=== PATIENT | male | born 1960 | race Caucasian/White ===

== ENCOUNTER 2016-10-20 06:58 | Day surgery (SDC) | payer BC, MEDICARE ==
--- NOTE | ~2016-10-20 | EGD ---
EGD REPORT [facility] [address] [address] NAME: ROHIT MALONE : [birth year] STATUS : REG [facility]#: [id number] AGE: 56 ADM/REG DATE : 10/20/16 MR#: [id number] REPORT SERV DATE: 10/20/16 DICTATED BY: MARY PEARL III DATE: 10/20/16 REPORT STATUS : Draft TRANSCRIBED BY: [facility] DATE: 10/20/16 Endoscopy Center Patient Name: Rohit Malone Date of : 1960 Attending MD: MARY PEARL III, MD Procedure Date No Time: 10/20/2016 Procedure: Colonoscopy Indications: High risk colon cancer surveillance: Personal history of colonic polyps Referring MD: LITA MARCUM Medicines: Propofol per Anesthesia Complications: No immediate complications. Procedure: Pre-Anesthesia Assessment: - ASA Grade Assessment: III - A patient with severe systemic disease. After I obtained informed consent, the scope was passed under direct vision. Throughout the procedure, the patient's blood pressure, pulse, and oxygen saturations were monitored continuously. The PCF [id number] was introduced through the anus and advanced to the cecum, identified by appendiceal orifice and ileocecal valve. The colonoscopy was performed with ease. The patient tolerated the procedure well. The quality of the bowel preparation was fair. Findings: A few small-mouthed diverticula were found in the sigmoid colon. External and internal hemorrhoids were found during retroflexion. A sessile polyp was found in the transverse colon. The polyp was 7 mm in size. The polyp was removed with a cold snare. Polyp resection was incomplete, and the resected tissue was not retrieved. Two sessile polyps were found in the ascending colon. The polyps were 4 to 5 mm in size. These polyps were removed with a cold biopsy forceps. Resection and retrieval were complete. Impression: - Diverticulosis in the sigmoid colon. - External and internal hemorrhoids. - One 7 mm polyp in the transverse colon. Incomplete resection. Resected tissue not retrieved. - Two 4 to 5 mm polyps in the ascending colon. Resected and retrieved. Recommendation: - Patient has a contact number available for emergencies. The signs and symptoms of potential delayed complications were discussed with the patient. Return to EGD REPORT [address] [address] NAME: ROHIT MALONE : [birth year] STATUS : REG [facility]#: [id number] AGE: 56 ADM/REG DATE : 10/20/16 MR#: [id number] REPORT SERV DATE: 10/20/16 DICTATED BY: MARY PEARL III DATE: 10/20/16 REPORT STATUS : Draft TRANSCRIBED BY: [email or web address] DATE: 10/20/16 normal activities tomorrow. Written discharge instructions were provided to the patient. - Discharge patient to home. - High fiber diet indefinitely. - Continue present medications. - Await pathology results. Procedure Code(s): --- Professional --- 16425, Colonoscopy, flexible, proximal to splenic flexure; with removal of tumor(s), polyp(s), or other lesion(s) by snare technique 75348, 59, Colonoscopy, flexible, proximal to splenic flexure; with biopsy, single or multiple Diagnosis Code(s): --- Professional --- K64.8, Other hemorrhoids K57.30, Diverticulosis of large intestine without perforation or abscess without bleeding D12.2, Benign neoplasm of ascending colon D12.3, Benign neoplasm of transverse colon Z86.010, Personal history of colonic polyps CPT copyright 2013 [employer]. All rights reserved. The codes documented in this report are preliminary and upon manager agricultural review may be revised to meet current compliance requirements. MARY PEARL III, MD 10/20/2016 9:09 AM This report has been signed electronically. Number of Addenda: 0 Note Initiated On: 10/20/2016 8:31 AM Scope Withdrawal Time 0 hours 13 minutes 48 seconds [address] [id number]
--- NOTE | ~2016-10-20 | EGD ---
EGD REPORT [facility] [address] [address] NAME: ROHIT MALONE : [birth year] STATUS : REG [facility]#: [id number] AGE: 56 ADM/REG DATE : 10/20/16 MR#: [id number] REPORT SERV DATE: 10/20/16 DICTATED BY: MARY PEARL III DATE: 10/20/16 REPORT STATUS : Draft TRANSCRIBED BY: [facility] DATE: 10/20/16 Endoscopy Center Patient Name: Rohit Malone Date of : 1960 Attending MD: MARY PEARL III, MD Procedure Date No Time: 10/20/2016 Procedure: Upper GI endoscopy Indications: Surveillance for malignancy due to personal history of Saucedo's esophagus, Heartburn Referring MD: LITA MARCUM Medicines: Propofol per Anesthesia Complications: No immediate complications. Procedure: Pre-Anesthesia Assessment: - ASA Grade Assessment: III - A patient with severe systemic disease. After obtaining informed consent, the endoscope was passed under direct vision. Throughout the procedure, the patient's blood pressure, pulse, and oxygen saturations were monitored continuously. The GIF H190 [id number] was introduced through the mouth, and advanced to the efferent jejunal loop. The upper GI endoscopy was accomplished with ease. The patient tolerated the procedure well. Findings: Localized mild erythema was found at the gastroesophageal junction. Biopsies were taken with a cold forceps for histology. Evidence of a gastric bypass was found. A gastric pouch with a normal size was found. The staple line appeared intact. The gastrojejunal anastomosis was characterized by healthy appearing mucosa. This was traversed. The [id number] limb was characterized by healthy appearing mucosa. The entire examined stomach was normal. The examined jejunum was normal. Non-severe esophagitis with no bleeding was found in the upper third of the esophagus. Impression: - Erythema at the gastroesophageal junction. Biopsied. - Gastric bypass with a normal-sized pouch intact staple line. - Normal stomach. - Normal examined jejunum. Recommendation: - Patient has a contact number available for emergencies. The signs and symptoms of potential delayed EGD REPORT [address] [address] NAME: ROHIT MALONE : [birth year] STATUS : REG [facility] [place] PAT#: [id number] AGE: 56 ADM/REG DATE : 10/20/16 MR#: [id number] REPORT SERV DATE: 10/20/16 DICTATED BY: MARY PEARL III DATE: 10/20/16 REPORT STATUS : Draft TRANSCRIBED BY: [email or web address] DATE: 10/20/16 complications were discussed with the patient. Return to normal activities tomorrow. Written discharge instructions were provided to the patient. - Discharge patient to home. - Follow an antireflux regimen. - Continue present medications. - Await pathology results. Procedure Code(s): --- Professional --- 36878, Esophagogastroduodenoscopy, flexible, transoral; with biopsy, single or multiple Diagnosis Code(s): --- Professional --- K22.9, Disease of esophagus, unspecified Z98.84, Bariatric surgery status K22.70, Saucedo's esophagus without dysplasia R12, Heartburn CPT copyright 2013 [employer]. All rights reserved. The codes documented in this report are preliminary and upon braille coder review may be revised to meet current compliance requirements. MARY PEARL III, MD 10/20/2016 8:44 AM This report has been signed electronically. Number of Addenda: 0 Note Initiated On: 10/20/2016 8:32 AM Scope Withdrawal Time 0 hours 0 minutes 0 seconds
[~2016-10-20 06:58] MED LIST: ABILIFY20 MG PO; ABILIFY30 MG PO; ACCO20 PO; ADVAIR250 INH; ALBUTEROL5 INH; ALLEGRA-D12 HOUR PO; ALLEGRA-D24 HOUR PO; ALLEGRA180 PO; AMB10 PO; BIST PO; CIALIS5 MG PO; CLINDAMAX1 % TOP; CORDARONE PO; COREG6 PO; COUMADIN4 MG PO; CULTURELLE PO; CYANO1000T PO; CYMBALTA30 PO; CYMBALTA60 PO; EXFORGE1 TAB PO; EZFE 200200 MG PO; FERROUS SULF325 M1 PO; FLINTSTONE3 PO; FLOMAX4 PO; FLONASE NAS; GLUCCHONDR PO; IRON; KLOR-CON M1010 MEQ PO; L40 PO; LAMICTAL150 MG PO; LAMICTAL200 MG PO; LORT7 PO; LORTAB10 PO; MICRO-K10 MEQ PO; MOBIC15 MG PO; MONODOX100 MG PO; MYRBETRIQ50 MG PO; NASACORTAQ NAS; NITROSTAT0.4 MG SL; NORCO1 TAB PO; PCET PO; PEP20 PO; PR12.5 PO; PREV30 PO; PREVACID OTC PO; PRILOSEC40 MG PO; PRIN10 PO; PROTONIX PO; PROVHFA INH; SINGULAIR1 PO; STOOL SOFTEN100 MG PO; SUCR PO; TRAZ100 PO; TRAZODONE300 MG PO; TRIBENZOR; TRIBENZOR 20-51 EACH PO; TRIBENZOR PO; Trazodone PO; VIACTIV PO; VIBRATAB100 MG PO; VITAMIN B-122500 MCG SL; VITAMIN D1000 UNI1 PO; VITAMIN D31000 UNIT PO; VITC500 PO; XANAX1 MG PO; Z300 PO; ZIAC10 PO; ZYDONE1 TA2 PO; ZYRTEC ALLGY10 MG PO; [UNRECOGNIZED DRUG - MIXTURE] PO; [UNRECOGNIZED DRUG - OTHER] PO; [UNRECOGNIZED DRUG - OTHER] PO; [UNRECOGNIZED DRUG - OTHER] SQ
== END 2016-10-20 23:59 | disposition home or self-care (01) ==
LOC: DMU 06:58
PROVIDERS: Internal Medicine Gastroenterology
PROC: 0DBL8ZZ Excision of Transverse Colon, Via Natural or Artificial Opening Endoscopic (ICD-10-PCS; principal; 2016-10-20 08:30)
PROC: 0DBK8ZX Excision of Ascending Colon, Via Natural or Artificial Opening Endoscopic, Diagnostic (ICD-10-PCS; 2016-10-20 08:30)
PROC: 0DB48ZX Excision of Esophagogastric Junction, Via Natural or Artificial Opening Endoscopic, Diagnostic (ICD-10-PCS; 2016-10-20 08:30)
DX: D12.2 Benign neoplasm of ascending colon (principal); D12.3 Benign neoplasm of transverse colon; K57.30 Diverticulosis of large intestine without perforation or abscess without bleeding; K64.8 Other hemorrhoids; K64.4 Residual hemorrhoidal skin tags; Z86.010 Personal history of colon polyps; B37.81 Candidal esophagitis; K21.0 Gastro-esophageal reflux disease with esophagitis; Z98.84 Bariatric surgery status; I11.0 Hypertensive heart disease with heart failure; I50.9 Heart failure, unspecified; N32.81 Overactive bladder; J45.909 Unspecified asthma, uncomplicated; G47.33 Obstructive sleep apnea (adult) (pediatric); M19.90 Unspecified osteoarthritis, unspecified site; M10.9 Gout, unspecified; F31.9 Bipolar disorder, unspecified; F41.9 Anxiety disorder, unspecified; R32 Unspecified urinary incontinence; E66.01 Morbid (severe) obesity due to excess calories; Z68.41 Body mass index [BMI] 40.0-44.9, adult; Z99.89 Dependence on other enabling machines and devices; Z85.46 Personal history of malignant neoplasm of prostate; Z88.0 Allergy status to penicillin; Z88.6 Allergy status to analgesic agent; Z79.2 Long term (current) use of antibiotics; Z79.51 Long term (current) use of inhaled steroids; Z79.899 Other long term (current) drug therapy; Z96.653 Presence of artificial knee joint, bilateral; Z98.890 Other specified postprocedural states; Z90.49 Acquired absence of other specified parts of digestive tract; Z90.79 Acquired absence of other genital organ(s)
CPT/HCPCS: 88305